=== PATIENT | male | born 1975 | race Caucasian/White ===

== ENCOUNTER 2017-11-03 17:29 | Inpatient (IN) ==
[2017-11-03 18:08] LABS: Basophils # 0.1 K/mcL (0.0-0.2); Basophils % 0.7 %; Eosinophils # 0.3 K/mcL (0.0-0.6); Eosinophils % 4.9 %; Hematocrit 43.9 % (37.5-50.1); Hemoglobin 14.1 g/dL (12.9-16.9); Immature Granulocytes % 0.3 % (0-4); Lymphocytes # 2.1 K/mcL (0.6-4.6); Lymphocytes % 30.1 %; Mean Corpuscular HGB Conc 32.1 g/dL (31.6-35.5); Mean Corpuscular Hemoglobin 26.7 pg (28.0-33.3); Mean Corpuscular Volume 83.1 fL (83.0-100.0); Mean Platelet Volume 9.1 fL (9.4-12.4); Monocytes # 0.7 K/mcL (0.0-1.3); Monocytes % 9.5 %; Neutrophils # 3.8 K/mcL (1.6-8.9); Platelet Count 153 K/mcL (140-400); Red Blood Count 5.28 M/mcL (4.19-5.50); Red Cell Distribution Width 12.7 % (11.5-14.5); Segmented Neutrophils % 54.5 %
--- NOTE | 2017-11-03 18:11 | Emergency Department Note ---
Disposition Clinical Impression: Pulmonary embolism on right DVT (deep venous thrombosis) Qualifiers: DVT location: lower extremity Affected thrombotic vein of extremity: femoral Chronicity: acute Laterality: right Qualified Code(s): I82.411 - Acute embolism and thrombosis of right femoral vein Disposition: Admitted As Inpatient Condition: Fair Time of Disposition: 19:59 General Adult HPI - General Chief complaint: ED Shortness of Breath/Dyspnea Stated complaint: right leg DVT, MAURA Time Seen by Provider: 11/03/17 17:40 Source: patient Mode of arrival: ambulatory Limitations: no limitations Nursing Notes Reviewed: Yes Vital Signs Reviewed: Yes - History of Present Illness HPI Narrative: Patient is a 42-year-old male with no pertinent past medical history presenting to the emergency department for concerns of shortness of breath and recently diagnosed DVT. The patient states that on Sunday, approximately 4 days ago he began having pain in his right lower calf. He was seen at [place], [place] and was diagnosed by ultrasound with a DVT of his right lower extremity from the mid calf to the mid femoral vein. States he was given 140 mg of Lovenox and a prescription for Eliquis 5 mg twice a day for the next 10 days and told to follow-up with his primary care physician this week. The patient states that this morning he woke from sleep and he felt that he was more short of breath than usual and is concerned that the DVT may have moved to his lungs. States she is also been having conversations with friends and family and they state they are concerned that he was sent home with a DVT. The patient denies any fevers, chills, headache, vision changes, chest pain, back pain, abdominal pain, worsening leg pain or any other concerning symptoms at this time. He states he does not had any recent surgeries or long trips. Denies any hormone use. Denies any known coagulopathy in the family. Pain Scale: 6 - Related Data Allergies Allergy/AdvReac Type Severity Reaction Status Date / Time No Known Allergies Allergy Verified 11/03/17 17:32 All systems ED: reviewed and negative except as stated. Review of Systems: As Per HPI Constitutional: Denies: fever, chills Cardiovascular: Denies: chest pain, palpitations, dyspnea on exertion Respiratory: Reports: dyspnea. Denies: wheezes Gastrointestinal: Denies: abdominal pain, nausea, vomiting Musculoskeletal: Denies: back pain, neck pain Past Medical History - Past Medical History Attestation: Yes The following information was validated with the patient. Medical history: Reports: DVT Psychiatric history: Reports: no psych history - Social History Smoking Status: Never smoker Smokeless Tobacco Status: Yes Alcohol use: Reports: rarely Drug use: Reports: none Physical Exam CONSTITUTIONAL: Well-appearing; well-nourished; A&O X 3, in no apparent distress HEAD: Normocephalic; atraumatic EYES: PERRL, no scleral icterus NOSE: The nose is normal in appearance without rhinorrhea NECK: No JVD or distended neck veins RESP: Normal chest excursion with respiration; breath sounds clear and equal bilaterally; no wheezes, rhonchi, or rales CARD: Regular rhythm, without murmurs, rub or gallop ABD: Non-distended; non-tender, soft, without rigidity, rebound or guarding,no pulsatile mass CHEST: No pain with palpation SKIN: Normal for age and race; warm and dry without diaphoresis ; no apparent lesions EXTREMITIES: Pulses are 2 plus and equal times 4 extremities, no peripheral edema. Patient does have calf tenderness along the proximal mid calf up into the mid way point of the femoral vein. - General Limitations: no limitations General appearance: alert Course Course Narrative: Plan at this time is a work the patient up for his shortness of breath. This will include a EKG as well as a CTA of the chest to rule out pulmonary embolism. We will also confirm the patient's therapy. - Reevaluation(s) Reevaluation #1: Patient's CTA resulted in showed a right main pulmonary embolism. Discussed plan to heparinize the patient at this time and admitted into the hospital for further management and evaluation for this PE to determined unprovoked versus provoked as well as continued anticoagulation. Patient continues to remain stable at this time is in no acute distress. Vital Signs Temperature 98 F 11/03/17 17:33 Pulse Rate 92 11/03/17 17:33 Respiratory Rate 20 11/03/17 17:33 Blood Pressure 136/88 11/03/17 17:33 O2 Sat by Pulse Oximetry 98 11/03/17 17:33 Temperature 98.4 F 11/03/17 22:34 Pulse Rate 84 11/03/17 22:34 Respiratory Rate 18 11/03/17 22:34 Blood Pressure 112/75 11/03/17 22:34 O2 Sat by Pulse Oximetry 97 11/03/17 22:34 Oxygen Delivery Oxygen Delivery Room Air Medical Decision Making - Medical Records Medical records reviewed: Yes I reviewed the patient's medical records. - Lab Data Result diagrams: 11/03/17 17:58 11/03/17 17:58 Lab Results 11/03/17 11/03/17 11/03/17 Range/Units 17:58 17:58 17:58 WBC 7.0 (4.3-11.1) K/mcL RBC 5.28 (4.19-5.50) M/mcL Hgb 14.1 (12.9-16.9) g/dL Hct 43.9 (37.5-50.1) % MCV 83.1 (83.0-100.0) fL MCH 26.7 L (28.0-33.3) pg MCHC 32.1 (31.6-35.5) g/dL RDW 12.7 (11.5-14.5) % Plt Count 153 (140-400) K/mcL MPV 9.1 L (9.4-12.4) fL Immature Gran % 0.3 (0-4) % Seg Neutrophils % 54.5 % Lymphocytes % 30.1 % Monocytes % 9.5 % Eosinophils % 4.9 % Basophils % 0.7 % Neutrophils # 3.8 (1.6-8.9) K/mcL Lymphocytes # 2.1 (0.6-4.6) K/mcL Monocytes # 0.7 (0.0-1.3) K/mcL Eosinophils # 0.3 (0.0-0.6) K/mcL Basophils # 0.1 (0.0-0.2) K/mcL PT 13.0 H (9.4-12.1) Seconds INR 1.2 APTT 33.8 (26.0-36.0) Seconds Sodium (136-145) mEq/L Potassium (3.5-5.1) mEq/L Chloride (98-107) mEq/L Carbon Dioxide (23-29) mEq/L BUN (6-20) mg/dL Creatinine (0.70-1.30) mg/dL Est GFR ( Amer) (> 60) Est GFR (Non-Af Amer) (> 60) BUN/Creatinine Ratio (6-26) Glucose (70-105) mg/dL Calculated Osmolality (280-300) Calcium (8.6-10.3) mg/dL Troponin I < 0.03 (< 0.04) ng/mL 11/03/17 Range/Units 17:58 WBC (4.3-11.1) K/mcL RBC (4.19-5.50) M/mcL Hgb (12.9-16.9) g/dL Hct (37.5-50.1) % MCV (83.0-100.0) fL MCH (28.0-33.3) pg MCHC (31.6-35.5) g/dL RDW (11.5-14.5) % Plt Count (140-400) K/mcL MPV (9.4-12.4) fL Immature Gran % (0-4) % Seg Neutrophils % % Lymphocytes % % Monocytes % % Eosinophils % % Basophils % % Neutrophils # (1.6-8.9) K/mcL Lymphocytes # (0.6-4.6) K/mcL Monocytes # (0.0-1.3) K/mcL Eosinophils # (0.0-0.6) K/mcL Basophils # (0.0-0.2) K/mcL PT (9.4-12.1) Seconds INR APTT (26.0-36.0) Seconds Sodium 136 (136-145) mEq/L Potassium 4.3 (3.5-5.1) mEq/L Chloride 103 (98-107) mEq/L Carbon Dioxide 27 (23-29) mEq/L BUN 19 (6-20) mg/dL Creatinine 0.82 (0.70-1.30) mg/dL Est GFR ( Amer) > 60 (> 60) Est GFR (Non-Af Amer) > 60 (> 60) BUN/Creatinine Ratio 23 (6-26) Glucose 104 (70-105) mg/dL Calculated Osmolality 285 (280-300) Calcium 9.5 (8.6-10.3) mg/dL Troponin I (< 0.04) ng/mL - Radiology Data Radiology results reviewed: Yes I reviewed the patient's radiology results. Chest CTA 11/03/17 17:52 IMPRESSION: Acute right-sided PE. D/ / Alfonso Bueno MD / Alfonso Bueno MD Interpreting Provider: Alfonso Bueno MD - EKG Data EKG #1 EKG attestation: Yes I reviewed and interpreted this EKG. EKG results narrative: EKG done at 17:59 shows sinus rhythm at a rate of 87 bpm. Normal axis. VA is 134, QRS is 93, QT is 364 and QTc is 49 and these are within normal limits. No signs of ST elevation, ST depression or Q waves present at this time. No old EKG for comparison.
[2017-11-03 18:14] LABS: INR 1.2
[2017-11-03 18:16] LABS: Activated Partial Thrombo Time 33.8 Seconds (26.0-36.0)
[2017-11-03 18:29] LABS: BUN/Creatinine Ratio 23 (6-26); Blood Urea Nitrogen 19 mg/dL (6-20); Calcium 9.5 mg/dL (8.6-10.3); Carbon Dioxide 27 mEq/L (23-29); Chloride 103 mEq/L (98-107); Glucose 104 mg/dL (70-105); Osmolality,Calculated 285 (280-300); Potassium 4.3 mEq/L (3.5-5.1); Sodium 136 mEq/L (136-145); eGFR For African Americans > 60 (> 60); eGFR For Non-African Americans > 60 (> 60)
[2017-11-03] MEDS ORDERED: 0.9 % Sodium Chloride 1,000 ML IVC ONE (19:02)
--- NOTE | 2017-11-03 19:02 | Emergency Department Note ---
Disposition Clinical Impression: Pulmonary embolism on right, DVT (deep venous thrombosis) Disposition: Admitted As Inpatient Referrals: NONE,PCP [Primary Care Provider] - Makayla Lua [Family Provider] - Forms: ED Satisfaction Letter General Adult HPI - General Chief complaint: ED Shortness of Breath/Dyspnea Stated complaint: right leg DVT, MAURA Time Seen by Provider: 11/03/17 17:40 Source: patient Mode of arrival: ambulatory Limitations: no limitations - History of Present Illness Pain Scale: 6 - Related Data Allergies Allergy/AdvReac Type Severity Reaction Status Date / Time No Known Allergies Allergy Verified 11/03/17 17:32 Constitutional: Denies: fever, chills Cardiovascular: Denies: chest pain, palpitations, dyspnea on exertion Respiratory: Reports: dyspnea. Denies: wheezes Gastrointestinal: Denies: abdominal pain, nausea, vomiting Musculoskeletal: Denies: back pain, neck pain Past Medical History - Past Medical History Medical history: Reports: DVT Psychiatric history: Reports: no psych history - Social History Smoking Status: Never smoker Smokeless Tobacco Status: Yes Alcohol use: Reports: rarely Drug use: Reports: none Physical Exam - General Limitations: no limitations General appearance: alert Course - Reevaluation(s) Reevaluation #1: I examined this patient and my medical decision-making was reviewed with the Resident Physician. I agree with the documented findings, disposition and treatment plan as described except to the extent set forth below. Patient to emergency department with a chief complaint of a DVT. Patient was seen [facility] Liliam Franco last night and has reported that showed a DVT in the right femoral into his popliteals and calf. He was discharged home after Lovenox with a prescription for Eliquis which he filled and started this morning. Patient states he is concerned because he thought that several people told him he should not be walking and he should not have been discharged. He is also complaining of some shortness of breath. On examination he is in no distress with clear lungs. But pink and warm with good DP and PT pulses. Plan. We will check CTA to rule out PE. We will arrange follow-up with hematology and oncology is patient is unsure why he got a DVT. Time: 18:58 Reevaluation #2: Patient with right-sided pulmonary embolus. He started on heparin and admitted to medicine. Patient hemodynamically stable. Time: 20:51 Vital Signs Temperature 98 F 11/03/17 17:33 Pulse Rate 92 11/03/17 17:33 Respiratory Rate 20 11/03/17 17:33 Blood Pressure 136/88 11/03/17 17:33 O2 Sat by Pulse Oximetry 98 11/03/17 17:33 Temperature 98 F 11/03/17 17:33 Pulse Rate 92 11/03/17 17:33 Respiratory Rate 20 11/03/17 17:33 Blood Pressure 136/88 11/03/17 17:33 O2 Sat by Pulse Oximetry 98 11/03/17 17:33 Oxygen Delivery Oxygen Delivery Room Air Medical Decision Making - Lab Data Result diagrams: 11/03/17 17:58 11/03/17 17:58 Lab Results 11/03/17 11/03/17 11/03/17 Range/Units 17:58 17:58 17:58 WBC 7.0 (4.3-11.1) K/mcL RBC 5.28 (4.19-5.50) M/mcL Hgb 14.1 (12.9-16.9) g/dL Hct 43.9 (37.5-50.1) % MCV 83.1 (83.0-100.0) fL MCH 26.7 L (28.0-33.3) pg MCHC 32.1 (31.6-35.5) g/dL RDW 12.7 (11.5-14.5) % Plt Count 153 (140-400) K/mcL MPV 9.1 L (9.4-12.4) fL Immature Gran % 0.3 (0-4) % Seg Neutrophils % 54.5 % Lymphocytes % 30.1 % Monocytes % 9.5 % Eosinophils % 4.9 % Basophils % 0.7 % Neutrophils # 3.8 (1.6-8.9) K/mcL Lymphocytes # 2.1 (0.6-4.6) K/mcL Monocytes # 0.7 (0.0-1.3) K/mcL Eosinophils # 0.3 (0.0-0.6) K/mcL Basophils # 0.1 (0.0-0.2) K/mcL PT 13.0 H (9.4-12.1) Seconds INR 1.2 APTT 33.8 (26.0-36.0) Seconds Sodium (136-145) mEq/L Potassium (3.5-5.1) mEq/L Chloride (98-107) mEq/L Carbon Dioxide (23-29) mEq/L BUN (6-20) mg/dL Creatinine (0.70-1.30) mg/dL Est GFR ( Amer) (> 60) Est GFR (Non-Af Amer) (> 60) BUN/Creatinine Ratio (6-26) Glucose (70-105) mg/dL Calculated Osmolality (280-300) Calcium (8.6-10.3) mg/dL Troponin I < 0.03 (< 0.04) ng/mL 11/03/17 Range/Units 17:58 WBC (4.3-11.1) K/mcL RBC (4.19-5.50) M/mcL Hgb (12.9-16.9) g/dL Hct (37.5-50.1) % MCV (83.0-100.0) fL MCH (28.0-33.3) pg MCHC (31.6-35.5) g/dL RDW (11.5-14.5) % Plt Count (140-400) K/mcL MPV (9.4-12.4) fL Immature Gran % (0-4) % Seg Neutrophils % % Lymphocytes % % Monocytes % % Eosinophils % % Basophils % % Neutrophils # (1.6-8.9) K/mcL Lymphocytes # (0.6-4.6) K/mcL Monocytes # (0.0-1.3) K/mcL Eosinophils # (0.0-0.6) K/mcL Basophils # (0.0-0.2) K/mcL PT (9.4-12.1) Seconds INR APTT (26.0-36.0) Seconds Sodium 136 (136-145) mEq/L Potassium 4.3 (3.5-5.1) mEq/L Chloride 103 (98-107) mEq/L Carbon Dioxide 27 (23-29) mEq/L BUN 19 (6-20) mg/dL Creatinine 0.82 (0.70-1.30) mg/dL Est GFR ( Amer) > 60 (> 60) Est GFR (Non-Af Amer) > 60 (> 60) BUN/Creatinine Ratio 23 (6-26) Glucose 104 (70-105) mg/dL Calculated Osmolality 285 (280-300) Calcium 9.5 (8.6-10.3) mg/dL Troponin I (< 0.04) ng/mL Critical Care Time Critical Care Time: Yes Total Critical Care Time: 35 Attestation: Critical care performed: Time is exclusive of separately billable procedures. Time includes: direct patient care, patient reassessment, coordination of patient care, interpretation of data (laboratory data, radiology data, and respiratory data), review of patient's medical records, medical consultation and documentation of patient care. Procedures included in critical care time: Procedures excluded from critical care time:
[2017-11-03] MEDS ORDERED: *HR* Heparin 5,000 UNIT/ML VIAL IVP ONE (19:15)
[2017-11-03] MEDS ORDERED: Heparin 25,000 UNIT/500 ML D5W 25,000 UNIT/500 ML BAG IVC SCH (19:15)
[2017-11-03] MEDS ORDERED: *HR* Heparin 5,000 UNIT/ML VIAL IVP PRN ×2 (19:15)
[2017-11-03] MEDS ORDERED: Naloxone 0.4 MG/ML INJ IVP PRN (20:55)
--- NOTE | 2017-11-03 21:02 | Internal Med History&Physical ---
Date of Encounter: 11/03/17 Time of Encounter: 20:59 Assessment and Plan (1) Pulmonary emboli Current visit: Yes Status: Acute convert heparin gtt to 1mg/kg lovenox BID for ease of monitoring and therapeutic value IVF check TTE monitor 24-48 hours, ambulate and qualify oxygen if needed if stable, would consider return back on eliquis, loading dose 10mg BID for 7 days then 5mg BID after VTE appears unprovoked , risk factor of obesity, outpatient heme eval and follow up Qualifiers: Chronicity: acute Acute cor pulmonale presence: without acute cor pulmonale Qualified Code(s): I26.99 - Other pulmonary embolism without acute cor pulmonale (2) DVT (deep venous thrombosis) Current visit: Yes Status: Acute check doppler US since test was done at OSH Qualifiers: DVT location: lower extremity Affected thrombotic vein of extremity: femoral Chronicity: acute Laterality: right Qualified Code(s): I82.411 - Acute embolism and thrombosis of right femoral vein (3) Obesity Current visit: Yes Status: Acute Qualifiers: Body mass index: BMI 45.0-49.9 Qualified Code(s): E66.9 - Obesity, unspecified; Z68.42 - Body mass index (BMI) 45.0-49.9, adult; Z68.42 - Body mass index (BMI) 45.0-49.9, adult; Z68.42 - Body mass index (BMI) 45.0-49.9, adult; Z68.42 - Body mass index (BMI) 45.0-49.9, adult Internal Medicine - H&P: HPI Chief complaint: Shortness of breath History of present illness: Mr. Jansen is a 42 year old male who presents with acute PE. He reports 1 week history of right lower extremity swelling and pain before presenting to also ER yesterday where he was found to have a right lower extremity DVT. He was given a dose of Lovenox and started on Eliquis as outpatient management. This morning when he woke up he developed shortness of breath, dyspnea on exertion at about noon. He presented to the ER where a CT PE showed PE. 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 Surgical history jones he had a knee surgery 4 years ago on his right knee. He denies any history of personal or family blood clot other than his maternal grandmother mother who had a blood clot. Unable to provide more history. He is healthy does not take medicines. She does not smoke. He is obese however. He has no history of gastric bypass or gastric surgery to suggest absorption issues with oral medicines. EKG personally reviewed with rate 87, normal sinus rhythm, left anterior fascicular block CT/CT angio chest IMPRESSION: Acute right-sided PE. Past Med Surg Social Fam HX - Past Medical History Medical history: DVT Psychiatric history: no psych history - Social History Smoking Status: Never smoker Smokeless Tobacco Status: Yes Alcohol use: rarely Drug use: none Internal Medicine - H&P: Meds 3 Allergy/AdvReac Type Severity Reaction Status Date / Time No Known Allergies Allergy Verified 11/03/17 17:32 All Systems PM: A 10-system review of systems was performed and is negative for pertinent findings except as documented above in the HPI. Review of systems: ROS 14 point review of systems reviewed as best as possible given presentation. Pertinent positive or negative as per HPI or otherwise reviewed as negative - Constitutional Vitals: Temp Pulse Resp BP Pulse Ox 98 F 92 20 136/88 98 11/03/17 17:33 11/03/17 17:33 11/03/17 17:33 11/03/17 17:33 11/03/17 17:33 Exam: General - AAO x 3 Psych - Appropriate affect/speech. No agitation Eyes - NEREIDA. Eye lids intact. No scleral icterus Neuro - No gross peripheral or central neuro deficits on inspection Heart - Sinus. RRR. S1 and S2 present. No added HS/murmurs appreciated. No elevated JVD appreciated. Lung - Adequate air entry b/l, No crackles/wheezes appreciated GI - Soft, non-tender. No hepatosplenomegaly/ascites. BS+ - No CVA/suprapubic tenderness or palpable bladder distension Skin - Intact. No rash/petechiae/ecchymosis. Warm extremities MSK - right lower extremity swelling with tenderness of calf Internal Med - H&P Results - Labs CBC & Chem 7: 11/03/17 17:58 11/03/17 17:58 Labs: Short CBC 11/03/17 Range/Units 17:58 WBC 7.0 (4.3-11.1) K/mcL Hgb 14.1 (12.9-16.9) g/dL Hct 43.9 (37.5-50.1) % Plt Count 153 (140-400) K/mcL Neutrophils # 3.8 (1.6-8.9) K/mcL BMP 11/03/17 17:58 Sodium 136 Potassium 4.3 Chloride 103 Carbon Dioxide 27 BUN 19 Creatinine 0.82 Glucose 104 Calcium 9.5 Cardiac Enzymes 11/03/17 Range/Units 17:58 Troponin I < 0.03 (< 0.04) ng/mL - Impressions ITS Impressions Chest CTA 11/03/17 17:52 IMPRESSION: Acute right-sided PE. D/ / Alfonso Bueno MD / Alfonso Bueno MD Interpreting Provider: Alfonso Bueno MD
[2017-11-03] MEDS: 0.9 % Sodium Chloride 1,000 ML IVC SCH (23:04)
[2017-11-03] MEDS: *HR* Enoxaparin 150 MG/ML SYRINGE SQ SCH (23:04)
[2017-11-04 03:41] LABS: Activated Partial Thrombo Time 212.3 Seconds (26.0-36.0)
[2017-11-04 03:59] LABS: Heparin anti-factor XA UFH 1.64 IU/mL (0.30-0.70)
[2017-11-04] MEDS: 0.9 % Sodium Chloride 1,000 ML IVC SCH (06:57)
[2017-11-04 07:39] VITALS: BP 114/77
[2017-11-04] MEDS: *HR* Enoxaparin 150 MG/ML SYRINGE SQ SCH (08:56)
--- NOTE | 2017-11-04 10:51 | Discharge Summary ---
- NOTES TO OUTPATIENT PROVIDER Notes to Outpatient Provider: Patient was diagnosed with a lower extremity DVT and put on Eliquis and another facility. He was diagnosed with acute PE here. It was a Sunday here in the patient was hemodynamically stable. He will need an echocardiogram done as an outpatient. Also hypercoagulable panel will need to be sent after treatment for the DVT and PE. Date of Encounter: 11/04/17 Time of Encounter: 10:49 - Discharge Diagnosis (1) Pulmonary embolism on right Priority: Primary Status: Acute (2) Obesity Priority: Secondary Status: Acute Qualifiers: Obesity type: due to excess calories Obesity classification: adult class 3 (BMI >= 40) Serious obesity comorbidity presence: without serious comorbidity Body mass index: BMI 45.0-49.9 Qualified Code(s): E66.01 - Morbid (severe) obesity due to excess calories; Z68.42 - Body mass index (BMI) 45.0-49.9, adult ; Z68.42 - Body mass index (BMI) 45.0-49.9, adult; Z68.42 - Body mass index (BMI ) 45.0-49.9, adult; Z68.42 - Body mass index (BMI) 45.0-49.9, adult Hospital course: Mr. Jansen is a 42 year old male who presented with acute PE. The patient has no past medical history. 2 days prior to this admission he was diagnosed with a right lower extremity DVT at an outside facility and was put on Eliquis. He went home and developed shortness of breath and presented to our facility with a CTA showed acute right PE. The heart and pericardium demonstrated no acute events. The patient was admitted to the hospitalist service and given a couple doses of cutaneous Lovenox. By the following morning I came and evaluated the patient he was not hypoxic, had no chest pain, and was not short of breath. I discussed the patient he can be discharged back on Eliquis and have follow-up with his primary care physician. I do recommend that the patient gets an echocardiogram done as an outpatient. He will also need to be used tested with a hypercoagulable panel once his acute symptoms/findings are resolved. - Time Spent with Patient Total time spent providing and/or coordinating discharge services: - Discharge Medications Prescriptions: Apixaban [Eliquis] 5 mg PO BID #60 tablet Home Medications: Apixaban [Eliquis] 5 mg PO BID #60 tablet 11/04/17 [Rx] Allergies/Adverse Reactions: 3 Allergy/AdvReac Type Severity Reaction Status Date / Time No Known Allergies Allergy Verified 11/03/17 17:32 Date of admission: 11/03/17 20:59 Primary care physician: PCP NONE - Constitutional Vitals: Temp Pulse Resp BP Pulse Ox 98.2 F 77 16 114/77 97 11/04/17 07:35 11/04/17 07:35 11/04/17 07:35 11/04/17 07:35 11/04/17 07:35 Exam: GEN: NAD CVS: RRR. S1, S2, No m/r/g RESP: CTAB ABD: Soft, NT, ND, +BS EXT: Right leg with more swelling than the left.. 2+ DP. No rashes NEURO: Nonfocal - Patient Status Disposition: Home, Self-Care Overall status at discharge: patient is progressing back to baseline - Discharge Instructions Instructions: Apixaban (By mouth), Pulmonary Embolism (DC), Deep Venous Thrombosis (DC) Follow Up With: NONE,PCP [Primary Care Provider] - (web request sent for a new patient follow up for the resident clinic) Makayla Lua [Family Provider] - Forms: Work/School Release Additional Instructions: 10MG Eliquis BID x 7 days then 5MG BID. [id number] - Diet and Activity Activity: increase activity as tolerated Diet: regular diet
--- NOTE | 2017-11-06 07:09 | Electrocardiograph Report ---
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
== END 2017-11-04 11:33 | disposition home or self-care (01) | DRG 176 ==
LOC: EMEROO 17:29 → 2ANU 17:29 → OBSVTOIN 20:59 → 2ANU 21:35
PROVIDERS: ADMIT Internal Medicine Hematology & Oncology; ATTEND Internal Medicine